=== PATIENT | male | born 1990 | race Asian ===

== ENCOUNTER → 2024-03-23 10:04 | Outpatient (REF) | payer OTHER, SELFPAY ==
[2024-03-23 21:08] LABS: Hepatitis B Surface Antibody Positive
[2024-03-25 15:11] LABS: Quantiferon Mitogen minus NIL 9.96 IU/mL; Quantiferon NIL 0.04 IU/mL; Quantiferon Plus TB1 minus NIL 0.01 IU/mL (<=0.34); Quantiferon Plus TB2 minus NIL 0.01 IU/mL (<=0.34); Quantiferon TB Gold Plus Negative (Negative)
== END ==
LOC: REG 10:04
PROVIDERS: ATTENDING PHYSICIAN Nurse Practitioner
DX: Z23 Encounter for immunization (principal)
CPT/HCPCS: 36415; 86480; 86706